=== PATIENT | female | born 1955 | race Caucasian/White ===

== ENCOUNTER 2022-09-09 19:07 | Outpatient (CLI) | payer MEDICARE, SELFPAY | END 2022-09-09 19:08 | disposition home or self-care (01) | LOC: LKVREF 19:08 | PROVIDERS: Visit Provider Nurse Practitioner Family | DX: S81.801A Unspecified open wound, right lower leg, initial encounter (principal) | CPT/HCPCS: 87070 ==

== ENCOUNTER 2022-11-14 08:07 | Outpatient (CLI) | payer MEDICARE, SELFPAY | END 2022-11-14 08:08 | disposition home or self-care (01) | LOC: NFLDREF 11-20 08:02 | PROVIDERS: Visit Provider Dermatology | DX: L81.9 Disorder of pigmentation, unspecified (principal); Z79.631 Long term (current) use of antimetabolite agent | CPT/HCPCS: 80053 ==

== ENCOUNTER 2022-11-22 15:06 | Outpatient (CLI) | payer MEDICARE, SELFPAY | END 2022-11-22 15:07 | disposition home or self-care (01) | LOC: LKVREF 15:06 | PROVIDERS: Visit Provider Physician Assistant | DX: L97.309 Non-pressure chronic ulcer of unspecified ankle with unspecified severity (principal) | CPT/HCPCS: 87070; 87186 ==

== ENCOUNTER 2022-12-04 09:04 | Outpatient (CLI) | payer MEDICARE, SELFPAY | END 2022-12-04 09:05 | disposition home or self-care (01) | LOC: WOUND 09:05 | PROVIDERS: Visit Provider Surgery | DX: I87.333 Chronic venous hypertension (idiopathic) with ulcer and inflammation of bilateral lower extremity (principal); L97.329 Non-pressure chronic ulcer of left ankle with unspecified severity; L97.319 Non-pressure chronic ulcer of right ankle with unspecified severity | CPT/HCPCS: 97597; 99213 ==

== ENCOUNTER 2022-12-13 08:55 | Outpatient (CLI) | payer MEDICARE, SELFPAY | END 2022-12-13 08:56 | disposition home or self-care (01) | LOC: WOUND 08:55 | PROVIDERS: Visit Provider Nurse Practitioner Family | DX: I87.312 Chronic venous hypertension (idiopathic) with ulcer of left lower extremity (principal); L97.322 Non-pressure chronic ulcer of left ankle with fat layer exposed | CPT/HCPCS: 97597 ==

== ENCOUNTER 2022-12-20 08:05 | Outpatient (CLI) | payer MEDICARE, SELFPAY | END 2022-12-20 08:06 | disposition home or self-care (01) | LOC: WOUND 08:05 | PROVIDERS: Visit Provider Nurse Practitioner Family | DX: I87.322 Chronic venous hypertension (idiopathic) with inflammation of left lower extremity (principal); L97.822 Non-pressure chronic ulcer of other part of left lower leg with fat layer exposed | CPT/HCPCS: 11042 ==

== ENCOUNTER 2022-12-27 07:56 | Outpatient (CLI) | payer MEDICARE, SELFPAY | END 2022-12-27 07:57 | disposition home or self-care (01) | LOC: WOUND 07:56 | PROVIDERS: Visit Provider Nurse Practitioner Family | DX: I87.331 Chronic venous hypertension (idiopathic) with ulcer and inflammation of right lower extremity (principal); L97.312 Non-pressure chronic ulcer of right ankle with fat layer exposed; I87.322 Chronic venous hypertension (idiopathic) with inflammation of left lower extremity; L97.322 Non-pressure chronic ulcer of left ankle with fat layer exposed | CPT/HCPCS: 11042; 87070; 87186; 97597 ==

== ENCOUNTER 2023-01-10 14:24 | Outpatient (CLI) | payer MEDICARE, SELFPAY | END 2023-01-10 14:25 | disposition home or self-care (01) | LOC: WOUND 14:24 | PROVIDERS: Visit Provider Surgery | DX: I87.322 Chronic venous hypertension (idiopathic) with inflammation of left lower extremity (principal); L97.822 Non-pressure chronic ulcer of other part of left lower leg with fat layer exposed | CPT/HCPCS: 97597 ==

== ENCOUNTER 2023-01-10 14:57 | Outpatient (CLI) | payer MEDICARE, SELFPAY ==
--- NOTE | 2023-01-10 15:00 | CRLHL7_ITS ---
For Patients: As a result of the Century Cures Act, medical imaging exams and procedure reports are released immediately into your electronic medical record. You may view this report before your referring provider. If you have questions, please contact your health care provider. INDICATION: Venous varicosities. COMPARISON: None available TECHNIQUE: A duplex venous ultrasound exam was performed of both lower extremities using mooney scale imaging, color Doppler and spectral Doppler analysis. Pre- and post compression images were obtained per site specific protocol. The size of the superficial veins were recorded, along with reflux times if applicable. FINDINGS: In the right lower extremity deep venous system, there is normal compressibility, color Doppler venous blood flow and augmentation within the common femoral vein, superficial femoral vein, popliteal vein, and posterior tibial veins. Incompetence of the mid femoral vein noted The greater and lesser saphenous veins of the right lower extremity are also patent and compressible with intact color Doppler venous blood flow. The greater saphenous vein measures 0.5 cm at the saphenofemoral junction where it is competent. The greater saphenous vein is competent throughout the thigh and calf with the exception of incompetence at the proximal GSV. The lesser saphenous vein is incompetent within the mid calf. In the left lower extremity deep venous system, there is normal compressibility, color Doppler venous blood flow and augmentation within the common femoral vein, superficial femoral vein, popliteal vein, and posterior tibial veins. Incompetence of the mid and distal femoral vein, popliteal vein and 1 of the posterior tibial veins noted. The greater and lesser saphenous veins of the right lower extremity are also patent and compressible with intact color Doppler venous blood flow. The greater saphenous vein measures 0.9 cm at the saphenofemoral junction where it is competent. The greater saphenous vein is competent throughout the thigh and calf with the exception of incompetence involving the distal thigh GSV and mid calf GSV. The lesser saphenous vein is competent throughout. IMPRESSION: 1. No deep or superficial venous thrombosis. 2. Venous insufficiency within the proximal thigh right GSV and mid right LSV. 3. Venous insufficiency within the left distal thigh GSV and left mid calf GSV. 4. 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 5. Incompetence of the mid and distal left femoral vein, left popliteal vein and 1 of the posterior tibial veins. Dictated by Skyler Ferro MD @ 01/12/2023 10:50:55 AM (Electronically Signed)
== END 2023-01-10 14:58 | disposition home or self-care (01) ==
LOC: US 14:58
PROVIDERS: Visit Provider Surgery
DX: I83.009 Varicose veins of unspecified lower extremity with ulcer of unspecified site (principal); I83.899 Varicose veins of unspecified lower extremity with other complications; L95.0 Livedoid vasculitis; L97.909 Non-pressure chronic ulcer of unspecified part of unspecified lower leg with unspecified severity; S81.801A Unspecified open wound, right lower leg, initial encounter
CPT/HCPCS: 93970; 97597

== ENCOUNTER 2023-02-28 14:10 | Outpatient (CLI) | payer MEDICARE, SELFPAY | END 2023-02-28 14:11 | disposition home or self-care (01) | LOC: WOUND 14:10 | PROVIDERS: Visit Provider Nurse Practitioner Family | DX: I87.312 Chronic venous hypertension (idiopathic) with ulcer of left lower extremity (principal); L97.322 Non-pressure chronic ulcer of left ankle with fat layer exposed | CPT/HCPCS: 11042 ==